=== PATIENT | female | born 1975 | race Caucasian/White ===

== ENCOUNTER 2022-08-31 11:44 | Outpatient (CLI) | payer OTHER, SELFPAY ==
--- NOTE | 2022-08-31 12:21 | CRLHL7_ITS ---
For Patients: As a result of the Century Cures Act, medical imaging exams and procedure reports are released immediately into your electronic medical record. You may view this report before your referring provider. If you have questions, please contact your health care provider. INDICATION: Pelvic pain TECHNIQUE: Ultrasound pelvis transabdominal and transvaginal for better assessment or to better visualize the endometrium. Real time sonographic images with Spectral and color Doppler imaging of the ovaries were obtained. COMPARISON: None FINDINGS: Uterus: 8.5 centimeter x 4.6 centimeter x 5.8 centimeter. Heterogeneous myometrium. 2.8 centimeter x 2.8 centimeter x 2.7 centimeter left fundal fibroid. Endometrium: Transvaginal imaging was performed to better evaluate the endometrium. 12 millimeters in thickness. And is heterogeneous in appearance no sign of endometrial mass or fluid. Right ovary: 3.3 centimeter x 1.4 centimeter x 2.8 centimeter. No ovarian or adnexal masses. Normal arterial and venous blood flow. Left ovary: 4.0 centimeter x 1.6 centimeter x 2.6 centimeter. No ovarian or adnexal masses. 2.5 centimeter complex dominant ovarian follicle. Normal arterial and venous blood flow. Cul-de-sac: No significant free fluid. IMPRESSION: 2.8 centimeter left fundal fibroid. Heterogeneous endometrium. Complex 2.5 centimeter left ovarian dominant follicle. Three-month follow-up recommended. Dictated by Arjun Edwards MD @ 08/31/2022 2:53:51 PM (Electronically Signed)
[2022-08-31 16:37] LABS: Chlamydia DNA Amplified* NOT DETECTED (No Detected); GC DNA Amplified* NOT DETECTED (No Detected)
== END 2022-08-31 11:45 | disposition home or self-care (01) ==
PROVIDERS: PCP Family Medicine; Visit Provider Obstetrics & Gynecology
DX: N94.9 Unspecified condition associated with female genital organs and menstrual cycle (principal); R30.0 Dysuria
CPT/HCPCS: 76830; 87086; 87491; 87591; 93976

== ENCOUNTER 2022-09-02 17:43 | Outpatient (CLI) | payer OTHER, SELFPAY ==
[2022-09-03 16:16] LABS: Cancer Antigen 125 20 U/mL (<=38)
== END 2022-09-02 17:44 | disposition home or self-care (01) ==
PROVIDERS: PCP Family Medicine; Visit Provider Obstetrics & Gynecology
DX: N93.9 Abnormal uterine and vaginal bleeding, unspecified (principal)
CPT/HCPCS: 86304; 87086

== ENCOUNTER 2022-09-09 08:55 | Outpatient (CLI) | payer OTHER, SELFPAY ==
[2022-09-10 14:57] LABS: Estradiol Premenol Female 307 pg/mL
[2022-09-10 19:01] LABS: Follicle Stimulating Hormone 8.3 IU/L
== END 2022-09-09 08:56 | disposition home or self-care (01) ==
PROVIDERS: PCP Family Medicine; Visit Provider Obstetrics & Gynecology
DX: N91.2 Amenorrhea, unspecified (principal)
CPT/HCPCS: 82670; 83001; 83002

== ENCOUNTER 2022-10-28 09:15 | Outpatient (CLI) | payer OTHER, SELFPAY | END 2022-10-28 09:16 | disposition home or self-care (01) | LOC: OP CLINIC 09:15 | PROVIDERS: PCP Family Medicine; Visit Provider Internal Medicine | DX: Z12.11 Encounter for screening for malignant neoplasm of colon (principal); K63.5 Polyp of colon; K57.30 Diverticulosis of large intestine without perforation or abscess without bleeding | CPT/HCPCS: 45380; 88305; J2250; J3010 ==

== ENCOUNTER 2023-02-17 07:37 | Outpatient (CLI) | payer OTHER, SELFPAY | END 2023-02-17 07:38 | disposition home or self-care (01) | LOC: NFLDREF 02-18 06:28 | PROVIDERS: PCP Family Medicine; Referring Provider Family Medicine; Visit Provider Internal Medicine | DX: I10 Essential (primary) hypertension (principal); Z13.6 Encounter for screening for cardiovascular disorders | CPT/HCPCS: 80053; 80061 ==

== ENCOUNTER 2023-03-10 09:01 | Outpatient (CLI) | payer OTHER, SELFPAY ==
--- NOTE | 2023-03-10 09:15 | CRLHL7_ITS ---
For Patients: As a result of the Century Cures Act, medical imaging exams and procedure reports are released immediately into your electronic medical record. You may view this report before your referring provider. If you have questions, please contact your health care provider. BILATERAL SCREENING MAMMOGRAM WITH COMPUTER-AIDED DETECTION TECHNIQUE: CC and MLO views were obtained. These mammographic images have been obtained using full-field digital technique. These mammographic images were interpreted with the benefit of computer-aided detection. COMPARISON FILM: 03/04/22, 01/22/21. FINDINGS: There are scattered areas of fibroglandular density IMPRESSION: There is no radiographic evidence for malignancy. ASSESSMENT: BI-RADS Category 1: Negative RECOMMENDATION: Routine screening mammogram in 1 year. A lay language report of this examination will be provided to the patient. Javier Kearns M.D. Diagnostic/Nuclear Medicine Radiologist [email or web address] SAVANNAH/Dictated by: Javier Kearns MD @ 03/10/2023 10:47:00 AM (Electronically Signed)
== END 2023-03-10 09:02 | disposition home or self-care (01) ==
LOC: MAMMO 09:02
PROVIDERS: PCP Family Medicine; Visit Provider Obstetrics & Gynecology
DX: Z12.31 Encounter for screening mammogram for malignant neoplasm of breast (principal)
CPT/HCPCS: 77067

== ENCOUNTER 2023-05-26 10:45 | Outpatient (RCR) | payer OTHER, SELFPAY | END 2023-09-23 23:59 | disposition home or self-care (01) | PROVIDERS: PCP Internal Medicine; Visit Provider Obstetrics & Gynecology | DX: M54.50 Low back pain, unspecified (principal); Z51.89 Encounter for other specified aftercare | CPT/HCPCS: 97110; 97162 ==

== ENCOUNTER 2024-10-18 11:16 | Outpatient (CLI) | payer OTHER, SELFPAY ==
--- NOTE | 2024-10-18 11:30 | CRLHL7_ITS ---
For Patients: As a result of the Cures Act, medical imaging exams and procedure reports are released immediately into your electronic medical record. You may view this report before your referring provider. If you have questions, please contact your health care provider. BILATERAL SCREENING MAMMOGRAM WITH COMPUTER-AIDED DETECTION AND TOMOSYNTHESIS TECHNIQUE: CC and MLO views were obtained. These mammographic images have been obtained using full-field digital technique. These mammographic images were interpreted with the benefit of computer-aided detection. Breast Tomosynthesis was used in this interpretation. COMPARISON FILM: 03/10/23, 03/04/22, 01/22/21. FINDINGS: There are scattered areas of fibroglandular density IMPRESSION: There is no radiographic evidence for malignancy. ASSESSMENT: BI-RADS Category 1: Negative RECOMMENDATION: Routine screening mammogram in 1 year. A lay language report of this examination will be provided to the patient. Arjun Angel M.D. Diagnostic Radiologist [email or web address] Transcribed: 3:40 p.mLluvia white/Dictated by: Arjun Angel MD @ 10/22/2024 10:39:00 AM (Electronically Signed)
== END 2024-10-18 11:17 | disposition home or self-care (01) ==
LOC: MAMMO 11:16
PROVIDERS: PCP Internal Medicine; Visit Provider Internal Medicine
DX: Z12.31 Encounter for screening mammogram for malignant neoplasm of breast (principal)
CPT/HCPCS: 77063; 77067

== ENCOUNTER 2025-04-22 08:53 | Outpatient (CLI) | payer OTHER, SELFPAY | END 2025-04-22 08:54 | disposition home or self-care (01) | PROVIDERS: PCP Internal Medicine; Visit Provider Internal Medicine | DX: I10 Essential (primary) hypertension (principal) | CPT/HCPCS: 80053; 80061 ==